=== PATIENT | male | born 1990 | race Two or more races ===

== ENCOUNTER 2018-10-10 13:04 | Emergency (ER) | payer MEDICAID ==
[~2018-10-10] VITALS: Ht 177.8 cm; Wt 68.0 kg
[2018-10-10 13:15] VITALS: BP 127/84
[2018-10-10] MEDS ORDERED: NKM (13:18)
--- NOTE | 2018-10-10 13:27 | NUR ---
ED Nurse Note: Patient walked in c/o burning pain with urination and penile swelling x 1 day; reports no fever, chills. Reports no penile discharge. Placed patient in chair. No facial grimacing or guarding noted.
[2018-10-10] MEDS ORDERED: AUGMENTIN 875-1 EAC1 ORAL (13:49)
[2018-10-10] MEDS ORDERED: Lidocaine 1% MPF 10mg/ml 5ml INJ ONE (14:00)
[2018-10-10] MEDS ORDERED: metroNIDAZOLE 500mg tab ORAL ONE (14:00)
[2018-10-10] MEDS ORDERED: Azithromycin 250mg tab ORAL ONE (14:00)
[2018-10-10 14:21] VITALS: BP 133/70
--- NOTE | 2018-10-10 14:21 | NUR ---
ER DISCHARGE NOTE: Patient is cleared to be discharged per ERMD, pt is aox4, on room air, with stable vital signs. pt was given dc and prescription instructions, pt was able to verbalize understanding, pt id band removed without complications. pt is able to ambulate with steady gait. pt took all belongings.
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
== END 2018-10-10 14:21 | disposition home or self-care (01) ==
LOC: EMR 13:47
DX: A64 Unspecified sexually transmitted disease (principal); N48.22 Cellulitis of corpus cavernosum and penis; S31.25XA Open bite of penis, initial encounter; W50.3XXA Accidental bite by another person, initial encounter; Y92.9 Unspecified place or not applicable
CPT/HCPCS: 96372; 96374; 99284; J0696; Q0144

== ENCOUNTER 2019-02-27 14:12 | Emergency (ER) | payer MEDICAID ==
[~2019-02-27] VITALS: Ht 177.8 cm; Wt 72.6 kg
[~2019-02-27 14:12] MED LIST: AUGMENTIN 875-1 EAC1 ORAL; NKM
[2019-02-27 14:17] VITALS: BP 119/79
--- NOTE | 2019-02-27 14:26 | NUR ---
ED Nurse Note: PT FROM HOME CAME IN DUE TO LUQ, NON RADIATING ABD PAIN WHEN COUGHING X 3 DAYS. DENIES PAIN AT REST. ALSO REPORTS HAVING FLU LIKE SYMPTOMS RECENTLY. AAO X4, AND AMBULATORY. CALM AND COOPERATIVE.
--- NOTE | 2019-02-27 15:48 | Emergency Room Report ---
History of Present Illness General Chief Complaint: Abdominal Pain Source: Patient Present Illness HPI 28-year-old male with history of heavy tobacco smoke here complaining of 2 weeks of cough and congestion and 2 days of left lower rib pain every time that he coughs. Denies wheezing, fever and chills at this time. Reports that he has been taking [id number]-acp-[id number] cough syrup with minimal relief. Denies generalized chest pain, shortness of breath, palpitation, headache and dizziness. Patient appears to be stable with stable vital signs. Denies any fall or trauma to the chest. Patient localizes the pain to the left 11 and 12 ribs every time he coughs. Denies pleuritic chest pain, calf tenderness, and other associated symptoms. Allergies: Coded Allergies: No Known Allergies (Unverified , 10/10/18) Patient History Past Medical History: see triage record Past Surgical History: unable to obtain Pertinent Family History: none Social History: Reports: smoking Immunizations: UTD Reviewed Nursing Documentation: PMH: Agreed; PSxH: Agreed Nursing Documentation-PMH Past Medical History: No Stated History Review of Systems All Other Systems: negative except mentioned in HPI Physical Exam Vital Signs Date Time Temp Pulse Resp B/P (MAP) Pulse Ox O2 Delivery O2 Flow Rate FiO2 02/27/19 14:17 98.2 99 18 119/79 (92) 97 Room Air Sp02 EP Interpretation: reviewed, normal General Appearance: no apparent distress, alert, GCS 15, non-toxic Head: normocephalic, atraumatic Eyes: bilateral eye normal inspection, bilateral eye PERRL ENT: hearing grossly normal, normal pharynx, no angioedema, normal voice Neck: full range of motion, supple, thyroid normal, no meningismus, no bony tend, supple/symm/no masses Respiratory: chest non-tender, lungs clear, normal breath sounds, no rhonchi, no respiratory distress, no retraction, no accessory muscle use, no wheezing, speaking full sentences Cardiovascular #1: regular rate, rhythm, no edema, no murmur Gastrointestinal: normal bowel sounds, non tender, soft, non-distended, no guarding, no rebound Rectal: deferred Genitourinary: no CVA tenderness Musculoskeletal: back normal, digits/nails normal, no calf tenderness, other - No bony tenderness noted on chest Neurologic: alert, motor strength/tone normal, oriented x3, sensory intact, responsive, speech normal Psychiatric: judgement/insight normal, memory normal, mood/affect normal, no suicidal/homicidal ideation Skin: no rash Lymphatic: no adenopathy Medical Decision Making PA Attestation All my diagnosis and treatment plans were reviewed ad discussed with my supervising physician Dr. Laguna Diagnostic Impression: Primary Impression: Atypical pneumonia Additional Impression: Costochondritis ER Course 28-year-old male with history of heavy tobacco smoke here complaining of 2 weeks of cough and congestion and 2 days of left lower rib pain every time that he coughs. Denies wheezing, fever and chills at this time. Reports that he has been taking xdfe-nho-wgggghy cough syrup with minimal relief. Denies generalized chest pain, shortness of breath, palpitation, headache and dizziness. Patient appears to be stable with stable vital signs. Denies any fall or trauma to the chest. Patient localizes the pain to the left 11 and 12 ribs every time he coughs. Denies pleuritic chest pain, calf tenderness, and other associated symptoms. Ddx considered but are not limited to: Atypical pneumonia, chest contusion, pneumothorax, costochondritis, bronchitis, PNA, URI viral, bacterial bronchitis Vital signs: are WNL, pt. is afebrile H&PE are most consistent with: Atypical pneumonia, costochondritis ORDERS: Chest x-ray, azithromycin, albuterol inhaler, Phenergan, prednisone ED INTERVENTIONS: None required at this time. DISCHARGE: At this time pt. is stable for d/c to home. Will provide printed patient care instructions, and any necessary prescriptions. Care plan and follow up instructions have been discussed with the patient prior to discharge. No breathing treatment note needed as patient is not actively wheezing or short of breath. Take medication as directed, avoid smoking, follow-up with primary care provider, alternate between ibuprofen and Tylenol for costochondritis pain, if worsening symptoms return to emergency room Chest X-Ray Diagnostic Results Chest X-Ray Diagnostic Results : Chest X-Ray Ordered: Yes # of Views/Limited/Complete: 1 View Indication: Shortness of Breath EP Interpretation: Yes REMIGIO Xray: Interpretation reviewed, by supervising MD, and agrees with findings. Interpretation: no consolidation, no effusion, no pneumothorax Impression: No acute disease Electronically Signed by: Trenton Pete PA-C Last Vital Signs Date Time Temp Pulse Resp B/P (MAP) Pulse Ox O2 Delivery O2 Flow Rate FiO2 02/27/19 14:24 87 16 Room Air 02/27/19 14:17 98.2 119/79 97 Disposition: HOME, SELF-CARE Condition: Stable Scripts Albuterol Sulfate (VENTOLIN HFA) 18 Gm Hfa.aer.ad 2 PUFFS INH EVERY 6 HOURS, #18 GM 0 Refills Prov: Trenton Collier 02/27/19 Prednisone* (PREDNISONE*) 20 Mg Tablet 40 MG ORAL DAILY for 5 Days, #10 TAB Prov: Trenton Collier 02/27/19 Promethazine Hcl (PROMETHAZINE HCL*) 6.25 Mg/5 Ml Syrup 5 ML ORAL Q8H, #120 ML 0 Refills Prov: Trenton Collier 02/27/19 Azithromycin* (ZITHROMAX*) 250 Mg Tablet 250 MG ORAL DAILY, #6 TAB 0 Refills Take two tables once daily for 1 day, then one tablet once daily for 4 days. Prov: Trenton Collier 02/27/19 Referrals: [facility],REFERRING (PCP) Patient Instructions: Costochondritis, [id number], Upper Respiratory Infection, Adult, [id number] Additional Instructions: Take medication as directed, follow-up with your primary care provider, if worsening symptoms return to the emergency room Trenton Collier Feb 27, 2019 15:48
[2019-02-27] MEDS ORDERED: VENTOLIN HFA18 GM INH (15:49)
[2019-02-27] MEDS ORDERED: PREDNISONE20 MG ORAL (15:49)
[2019-02-27] MEDS ORDERED: ZITHROMAX250 MG ORAL (15:49)
[2019-02-27] MEDS ORDERED: PROMETHAZI6.25 MG/1 ORAL (15:49)
[2019-02-27 15:54] VITALS: BP 120/82
--- NOTE | 2019-02-27 15:56 | NUR ---
ED Nurse Note: Pt cleared by health care Provider for discharge. Patient accompanied by significant other. DC instructions/prescription was given and explained to pt and verbalized understanding of teachings. All medical deviecs such as ID band removed. Pt is AAO x4, ambulatory and left with all personal belongings.
--- NOTE | 2019-02-28 10:57 | Diagnostic Imaging Report ---
Indication: Chest/rib pain. Technique: XRAY Ribs w/PA CXR Uni L Comparison: None Findings: Bone mineralization within normal limits. No definite/displaced acute left-sided rib fracture identified. Imaged portions of lungs are clear, without evidence of pleural effusion or pneumothorax. Heart size and mediastinal contours are within normal limits. No radiopaque foreign body. Impression: * No definite/displaced acute left-sided rib fracture. * No evidence of pleural effusion or pneumothorax.
== END 2019-02-27 15:55 | disposition home or self-care (01) ==
LOC: EMR 14:24
DX: J18.9 Pneumonia, unspecified organism (principal); M94.0 Chondrocostal junction syndrome [Tietze]; F17.200 Nicotine dependence, unspecified, uncomplicated
CPT/HCPCS: 71101; 82962; Z7502; 99283

== ENCOUNTER 2020-02-14 10:34 | Emergency (ER) | payer MEDICAID ==
[~2020-02-14] VITALS: Ht 177.8 cm; Wt 65.8 kg
[~2020-02-14 10:34] MED LIST changes: +PREDNISONE20 MG ORAL; +PROMETHAZI6.25 MG/1 ORAL; +VENTOLIN HFA18 GM INH; +ZITHROMAX250 MG ORAL
[2020-02-14] MEDS ORDERED: Ketorolac 60mg Inj IM ONE (11:00)
--- NOTE | 2020-02-14 11:00 | NUR ---
ED Nurse Note: Pt walked into ED for 10/10 SOLORZANO for 1 week. Pt is alert and orientedx4, ambulatory. He has been seen by ERMD. Pt denies nausea, vomiting, chills, bodyaches. He has been seen by ERMD.
[2020-02-14 11:13] VITALS: BP 123/80
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
[2020-02-14 11:25] VITALS: BP 120/83
--- NOTE | 2020-02-14 11:27 | NUR ---
ER DISCHARGE NOTE: Patient is cleared to be discharged per ERMD, pt is aox4, on room air, with stable vital signs. pt was given dc and prescription instructions, pt was able to verbalize understanding, pt id band removed. pt is able to ambulate with steady gait. pt took all belongings. pT educated regarding HAs.
== END 2020-02-14 11:27 | disposition home or self-care (01) ==
LOC: EMR 11:05
DX: R51.9 Headache, unspecified (principal)
CPT/HCPCS: 96372; Z7502; 99283